=== PATIENT | male | born 1990 | race Asian ===

== ENCOUNTER 2018-06-26 23:02 | Emergency (ER) | payer OTHER ==
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
[2018-06-27 01:32] VITALS: BP 137/89
== END 2018-06-27 01:31 | disposition home or self-care (01) ==
DX: S09.90XA Unspecified injury of head, initial encounter (principal); S50.311A Abrasion of right elbow, initial encounter; S40.211A Abrasion of right shoulder, initial encounter; S00.81XA Abrasion of other part of head, initial encounter; V03.10XA Pedestrian on foot injured in collision with car, pick-up truck or van in traffic accident, initial encounter; Y92.410 Unspecified street and highway as the place of occurrence of the external cause